=== PATIENT | female | born 1955 ===

== ENCOUNTER 2017-04-02 06:14 | Observation (INO) | payer OTHER ==
[2017-04-02 07:57] LABS: BASO % 0.5 % (0.0-2.0); EOS # 0.1 K/uL (0.0-0.7); HEMATOCRIT 34.1 % (34.0-47.0); LYMPH # 1.6 K/uL (1.0-4.3); LYMPH % 21.9 % (20.0-40.0); MEAN CELL VOLUME 74.8 fl (81.0-99.0); MEAN CORPUSCULAR HEMOGLOBIN 23.8 pg (27.0-31.0); MEAN CORPUSCULAR HGB CONC 31.8 g/dL (33.0-37.0); MEAN PLATELET VOLUME 7.3 fl (7.2-11.7); MONO # 0.7 K/uL (0.0-0.8); MONO % 8.8 % (0.0-10.0); NEUT % 66.8 % (50.0-75.0); RED CELL DISTRIBUTION WIDTH 17.1 % (11.5-14.5); WHITE BLOOD COUNT 7.5 K/uL (4.8-10.8)
--- NOTE | 2017-04-02 08:00 | RAD ---
HISTORY: knee pain COMPARISON: No prior. FINDINGS: LUNGS: No active pulmonary disease. PLEURA: No significant pleural effusion identified, no pneumothorax apparent. CARDIOVASCULAR: Normal. OSSEOUS STRUCTURES: No significant abnormalities. VISUALIZED UPPER ABDOMEN: Normal. OTHER FINDINGS: None. IMPRESSION: No acute cardiopulmonary disease appreciated.
[2017-04-02 08:02] LABS: PARTIAL THROMBOPLASTIN TIME 29.6 Seconds (25.6-37.1)
[2017-04-02 08:10] LABS: BLOOD UREA NITROGEN 17 mg/dl (7-17); CALCIUM 9.8 mg/dL (8.4-10.2); CARBON DIOXIDE 24 mmol/L (22-30); CHLORIDE 106 mmol/L (98-107); GFR AFRICAN-AMERICAN > 60; GLUCOSE,RANDOM 131 mg/dL (65-105); POTASSIUM 3.9 MMOL/L (3.6-5.0); SODIUM 142 mmol/l (132-148)
--- NOTE | 2017-04-02 08:15 | ED PDOC ---
Lower Extremity Pain/Injury Time Seen by Provider: 04/02/17 07:04 Chief Complaint (Nursing): Lower Extremity Problem/Injury Chief Complaint (Provider): Left Knee Pain History Per: Patient History/Exam Limitations: no limitations Onset/Duration Of Symptoms: Other (3 weeks) Current Symptoms Are (Timing): Still Present Additional Complaint(s): Patient is a 61 y/o female with a past medical history of hypertension presenting to the emergency department for severe, worsening left knee pain ongoing for three weeks. States that her knee feels "locked" and reports having difficulty walking and bending her knee. Also notes taking Tylenol with codeine without significant relief. Denies fever, trauma, leg swelling, or other complaints. PCP: Dr. Imani Schultz Past Medical History Reviewed: Historical Data, Nursing Documentation, Vital Signs Vital Signs: Last Vital Signs Temp 98.2 F 04/02/17 06:18 Pulse 73 04/02/17 06:18 Resp 16 04/02/17 06:18 BP 134/57 L 04/02/17 06:18 Pulse Ox 98 04/02/17 06:18 - Medical History PMH: HTN - Surgical History Surgical History: - Family History Family History: States: Unknown Family Hx - Social History Alcohol: None Drugs: Denies - Home Medications Home Medications: Ambulatory Orders Medication Instructions Recorded Bimatoprost [Lumigan] 1 drop OU HS 04/02/17 Dorzolamide HCl/Timolol Maleat 1 drop OU BID 04/02/17 [Dorzolamide-Timolol Eye Drops] Losartan/Hydrochlorothiazide 1 tab PO DAILY 04/02/17 [Losartan-Hctz 50-12.5 mg Tab] oxyCODONE/Acetaminophen [Percocet 1 mg PO Q4 PRN 04/02/17 5/325 mg Tab] - Allergies Allergies/Adverse Reactions: Allergies Allergy/AdvReac Type Severity Reaction Status Date / Time No Known Allergies Allergy Verified 04/02/17 06:21 Review of Systems ROS Statement: Except As Marked, All Systems Reviewed And Found Negative Constitutional: Negative for: Fever Musculoskeletal: Positive for: Other (Left knee pain) Physical Exam - Reviewed Nursing Documentation Reviewed: Yes Vital Signs Reviewed: Yes - Physical Exam Appears: Positive for: Non-toxic, No Acute Distress Head Exam: Positive for: ATRAUMATIC, NORMAL INSPECTION, NORMOCEPHALIC Skin: Positive for: Normal Color, Warm, Dry Eye Exam: Positive for: Normal appearance Neck: Positive for: Normal Cardiovascular/Chest: Positive for: Regular Rate, Rhythm. Negative for: Murmur Respiratory: Positive for: Normal Breath Sounds. Negative for: Accessory Muscle Use, Respiratory Distress Gastrointestinal/Abdominal: Positive for: Normal Exam Extremity: Positive for: Tenderness (to palpation of left knee), Swelling (mild , left knee), Other (extremely limited ROM of left knee due to pain) - Laboratory Results Result Diagrams: 04/02/17 07:24 04/02/17 08:24 - ECG ECG: Positive for: Interpreted By Me, Viewed By Me ECG Rhythm: Positive for: Normal QRS, Sinus Rhythm. Negative for: ST/T Changes Rate: 63 O2 Sat by Pulse Oximetry: 98 (RA) Pulse Ox Interpretation: Normal Medical Decision Making Medical Decision Making: Time: 07:18 Initial impression: Intractable left knee pain. Differential diagnoses include but not limited to arthritis. Initial plan: EKG Orthopedic Consult Labs Urinalysis Reevaluation 07:[address] Boyle who recommends admission to hospital. 07:58 Chest X-ray reviewed. Findings noted as follows: LUNGS: No active pulmonary disease. PLEURA: No significant pleural effusion identified, no pneumothorax apparent. CARDIOVASCULAR: Normal. OSSEOUS STRUCTURES: No significant abnormalities. VISUALIZED UPPER ABDOMEN: Normal. OTHER FINDINGS: None. IMPRESSION: No acute cardiopulmonary disease appreciated. Scribe Attestation: Documented by Opal Huynh, acting as a scribe for Devan Wong MD. Provider Scribe Attestation: All medical record entries made by the Scribe were at my direction and personally dictated by me. I have reviewed the chart and agree that the record accurately reflects my personal performance of the history, physical exam, medical decision making, and the department course for this patient. I have also personally directed, reviewed, and agree with the discharge instructions and disposition. Disposition - Clinical Impression Clinical Impression: Knee pain, acute, Knee pain, left - Patient ED Disposition Is Patient to be Admitted: Yes Discussed With : Mushtaq Boyle III Doctor Will See Patient In The: Hospital Counseled Patient/Family Regarding: Diagnosis - Disposition Disposition Time: 07:30 Condition: FAIR - Pt Status Changed To: Hospital Disposition Of: Observation - POA Present On Arrival: None
[2017-04-02 08:32] LABS: RBC URINE 1 /hpf (0-3); URINE BILIRUBIN NEGATIVE (NEGATIVE); URINE BLOOD NEGATIVE (NEGATIVE); URINE COLOR YELLOW (YELLOW); URINE GLUCOSE (UA) NEG (Normal); URINE KETONE NEGATIVE (NEGATIVE); URINE LEUKOCYTE ESTERASE TRACE Leu/uL (Negative); URINE PROTEIN NEGATIVE (NEGATIVE); URINE UROBILINOGEN 0.2-1.0 mg/dL (0.2-1.0); WBC URINE 3 /hpf (0-5)
--- NOTE | 2017-04-02 08:38 | CP.PCM.HP ---
History of Present Illness - History of Present Illness History of Present Illness: Orthopedic note Dr. Boyle 61F complains of intractable left knee pain and difficulty walking x 3 weeks. She denies any trauma or falls at that time, but says pain started acutely. She is unable to walk without a limp due to pain. OTC pain medication does not help. She has no hx gout, no prior knee pain or injury or surgery. Says pain is throbbing, and worst in the back of her knee PMH: HTN, glaucoma PSH: thyroid, c section NKDA Present on Admission - Present on Admission Any Indicators Present on Admission: No Review of Systems - Review of Systems All systems: reviewed and no additional remarkable complaints except - Constitutional Additional comments: denies, no recent illness or travel - Musculoskeletal Musculoskeletal: As Per HPI - Integumentary Additional comments: mild swelling - Neurological Additional comments: denies numbness/tingling - Endocrine Endocrine: absent: As Per HPI, Change in Body Appearance, Change in Libido, Cold Intolorance, Deepening of Voice, Excessive Sweating, Fatigue, Flushing, Heat Intolorance, Increase in Ring/Shoe/Hat Size, Palpitations, Polydipsia, Polyphagia, Polyuria, Other - Hematologic/Lymphatic Hematologic: absent: As Per HPI, Easy Bleeding, Easy Bruising, Lymphadenopathy, Other Past Patient History - Past Medical History & Family History Past Medical History?: Yes - Past Social History Alcohol: None Drugs: Denies - CARDIAC Hx Hypertension: Yes - HEENT Hx Glaucoma: Yes - PSYCHIATRIC Hx Emotional Abuse: No Hx Physical Abuse: No Hx Substance Use: No - SURGICAL HISTORY Hx Section: Yes Hx Thyroidectomy: Yes (partial) - ANESTHESIA Hx Anesthesia: No Meds Allergies/Adverse Reactions: Allergies Allergy/AdvReac Type Severity Reaction Status Date / Time No Known Allergies Allergy Verified 04/02/17 06:21 Physical Exam - Constitutional Appears: Well, No Acute Distress - Respiratory Exam Respiratory Exam: NORMAL BREATHING PATTERN - Cardiovascular Exam Cardiovascular Exam: REGULAR RHYTHM - GI/Abdominal Exam GI & Abdominal Exam: Normal Bowel Sounds - Expanded Lower Extremities Exam Left Hip exam: full ROM (Left knee: neg varus/valgus/maria r, sensation intact, calves soft NT neg homans, +mild jt effusion, not warm no erythema, TTP posterior knee and medial joint line) Ankle exam: FULL ROM, NORMAL INSPECTION Foot/Toe exam: full ROM - Neurological Exam Neurological exam: Alert, Oriented x3 - Psychiatric Exam Psychiatric exam: Normal Affect, Normal Mood - Skin Skin Exam: Dry, Intact, Normal Color, Warm Results - Vital Signs Recent Vital Signs: Last Vital Signs Temp 98.2 F 04/02/17 06:18 Pulse 73 04/02/17 06:18 Resp 16 04/02/17 06:18 BP 134/57 L 04/02/17 06:18 Pulse Ox 98 04/02/17 08:20 - Labs Result Diagrams: 04/02/17 07:24 Labs: Laboratory Results - last 24 hr 04/02/17 04/02/17 04/02/17 07:24 07:24 07:49 WBC 7.5 RBC 4.55 Hgb 10.8 L Hct 34.1 MCV 74.8 L MCH 23.8 L MCHC 31.8 L RDW 17.1 H Plt Count 379 MPV 7.3 Neut % (Auto) 66.8 Lymph % (Auto) 21.9 [place] % (Auto) 8.8 Eos % (Auto) 2.0 Baso % (Auto) 0.5 Neut # 5.0 Lymph # 1.6 [place] # 0.7 Eos # 0.1 Baso # 0.0 PT 11.5 INR 1.0 APTT 29.6 POC Glucose (mg/dL) Urine Color Yellow Urine Clarity Slighty-cloudy Urine pH 6.0 Ur Specific [place] 1.018 Urine Protein Negative Urine Glucose (UA) Neg Urine Ketones Negative Urine Blood Negative Urine Nitrate Negative Urine Bilirubin Negative Urine Urobilinogen 0.2-1.0 Ur Leukocyte Esterase Trace Urine RBC (Auto) 1 Urine Microscopic WBC 3 Ur Squamous Epith Cells 5 04/02/17 07:57 WBC RBC Hgb Hct MCV MCH MCHC RDW Plt Count MPV Neut % (Auto) Lymph % (Auto) [place] % (Auto) Eos % (Auto) Baso % (Auto) Neut # Lymph # [place] # Eos # Baso # PT INR APTT POC Glucose (mg/dL) 131 H Urine Color Urine Clarity Urine pH Ur Specific [place] Urine Protein Urine Glucose (UA) Urine Ketones Urine Blood Urine Nitrate Urine Bilirubin Urine Urobilinogen Ur Leukocyte Esterase Urine RBC (Auto) Urine Microscopic WBC Ur Squamous Epith Cells - Impressions Impression: MRI from outside facility: [facility] rad 03/17/17 Cartilage loss over PF jt, noted joint effusion and soft tisuue edema Degeneration of posterior horn of the meidal meniscus, 5mm traction cyst at the tibial root insertion joint effusion Assessment & Plan (1) Knee pain, left Status: Acute (2) Acute medial meniscus tear of left knee Assessment and Plan: case d/w Dr. Boyle who reviewed MRI NPO for left knee arthroscopy today labs reviewed for OR Status: Acute
[2017-04-02] MEDS ORDERED: ceFAZolin IV 1 gm in Dextrose 1 GM/50 ML BAG IVPB ONE (09:00)
[2017-04-02] MEDS ORDERED: Bupivacaine 0.5% Inj(30mL) ONE (09:00)
[2017-04-02] MEDS ORDERED: MethylPREDNISolone Depo 40 mg/ml Inj ONE (09:00)
[2017-04-02] MEDS ORDERED: Lidocaine 1% Inj (20ml) ONE (09:00)
[2017-04-02] MEDS ORDERED: Absorbable Gelatin Sponge Size 12-7 ONE (09:00)
[2017-04-02] MEDS ORDERED: Propofol 10 mg/ml Inj (20 ML) ONE (09:16)
[2017-04-02] MEDS ORDERED: Succinylcholine 200 mg/10 ml Inj IV ONE (09:17)
[2017-04-02] MEDS ORDERED: Bacitracin Ointment 30 GM TUBE ONE (09:32)
[2017-04-02] MEDS ORDERED: Lidocaine 4% (Laryng-O-Jet) Kit MM ONE (11:48)
[2017-04-02] MEDS ORDERED: Midazolam 2 MG/2 ML VIAL ONE (11:48)
[2017-04-02] MEDS ORDERED: Lactated Ringer's 1,000 ML IV ONE ×3 (11:50→15:00)
[2017-04-02] MEDS ORDERED: ePHEDrine 50 mg/ml Inj ONE (12:15)
[2017-04-02] MEDS ORDERED: Sevoflurane - Inhalation Anesthetic Liq (250 ml) ONE (12:20)
[2017-04-02] MEDS ORDERED: Rocuronium 10 mg/ml (5 ml) ONE (12:30)
[2017-04-02] MEDS ORDERED: Oxycodone/Acetaminophen 5/325 mg Tab PO PRN (12:55)
[2017-04-02] MEDS ORDERED: Lidocaine 1% Inj (20ml) IJ ONE (12:55)
[2017-04-02] MEDS ORDERED: Morphine 1 mg/ml preservative-free Inj(Duramorph) ONE (13:15)
[2017-04-02] MEDS ORDERED: Neostigmine Methylsulfate 2 MG/2 ML ML IV ONE (13:25)
[2017-04-02] MEDS ORDERED: Bupivacaine 0.5% 50 ML IJ ONE (13:25)
[2017-04-02] MEDS ORDERED: Morphine 5 mg/10 ml preservative-free Inj(Duramorph) INJ ONE (13:25)
[2017-04-02] MEDS ORDERED: Bacitracin OINT 15GM TOP ONE (13:25)
[2017-04-02] MEDS ORDERED: MethylPREDNISolone Depo 40 mg/ml Inj INJ ONE (13:25)
[2017-04-02] MEDS ORDERED: HYDROmorphone 0.5 mg/0.5 ml ISec IVP PRN (13:50)
--- NOTE | 2017-04-02 13:54 | PCM.SURG1 ---
Surgeon's Initial Post Op Note - Surgeon's Notes Surgeon: Tamar Motor Block Mechanic: AYAH Sheikh Type of Anesthesia: General Endo Anesthesia Administered By: DR Almanza Pre-Operative Diagnosis: Locked L Knee/O/A L knee Operative Findings: severe djd medial femoral condyle/posterior patella. tear medial meniscus/teasrt lateral meniscus. tricompartmental synovitis Post-Operative Diagnosis: as above Operation Performed: athroscopic microfracture medial femoral comndyler. chondroplasty posterior patella. tricompartmental synovitis. tear medial menioscus/tear lateral meniscus Specimen/Specimens Removed: cartilage/bone/synovium Estimated Blood Loss: EBL {In ML}: 5 Blood Products Given: N/A Drains Used: No Drains Post-Op Condition: Good Date of Surgery/Procedure: 04/02/17 Time of Surgery/Procedure: 12:55 (time in room/ anesthesiua iundcution [id number] )
[2017-04-02 14:07] VITALS: RESP 18
[2017-04-02 14:10] LABS: FLUID TYPE SYNOVIAL FLUID
[2017-04-02 16:07] LABS: SYNOVIAL FLUID TOTAL COUNT 100 (0-0)
[2017-04-02] MEDS ORDERED: Oxycodone/Acetaminophen 5/325 mg Tab PO ONE (16:25)
--- NOTE | 2017-04-02 16:31 | CARD ---
APPROVED REPORT EKG Measurement Heart [id number] <Conclusion> Normal sinus rhythm Normal ECG
[2017-04-02 17:50] VITALS: BP 124/62; TEMP 98
--- NOTE | 2017-04-02 18:41 | OP ---
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 POSTOPERATIVE DIAGNOSES: 1. Locked left knee. 2. Condylar damage, medial femoral condyle, patellofemoral joint. 3. Tear of medial and lateral meniscus. 4. Tricompartmental synovitis. PROCEDURE: 1. Surgical arthroscopy, microfracture, medial femoral condyle. 2. Surgical arthroscopy, chondroplasty, posterior aspect of the patella. 3. Surgical arthroscopy, partial medial meniscectomy, partial lateral meniscectomy. 4. Surgical arthroscopy, partial tricompartmental synovectomy. 5. Intraarticular injection. SURGEON: Mushtaq Boyle MD OPERATIONS ADMINISTRATIVE ASSISTANT: Nerissa Montez, certified registered nursing. TYPE OF ANESTHESIA: General and spinal anesthesia. ANESTHESIA ADMINISTERED BY: Juan Carlos Cifuentes MD COMPLICATIONS: None. DRAINS: None. OPERATIVE INDICATIONS: Mrs. Franklin is a woman who presents to the emergency room of [facility] with severe pain and inability to ambulate with a locked left knee. The patient no longer withstand the discomfort. She was admitted as an emergency with left knee locking and severe pain. She has had severe pain since Sunday. The patient presented as a 61-year-old woman with severe pain and a locked knee, who presents to the emergency room of [facility] with severe pain and locked left knee. The patient have been treated conservatively by her primary care doctor. The patient was admitted as an emergency for an emergency surgery. DESCRIPTION OF PROCEDURE: After having obtained informed consent in the above fashion, after having identified side, site, and procedure, a critical pause/timeout after the satisfactory induction of general anesthetic. The patient identified as Vanessa Franklin. In the supine position, with all bony prominence well padded, the left lower extremity was prepped and free-draped in the usual fashion for lower extremity surgery. The tourniquet had been applied, but not yet inflated. A needle hickman was employed after exsanguinating the limb using 6-inch Esmarch bandage. The tourniquet which had been applied was inflated to 350 mmHg. was shaved to lateral aspect of the patella using #11 blade followed by spreading. The arthroscope was introduced. The joint was infiltrated with 10 mL of 1% lidocaine without epinephrine. Using #11 blade followed by spreading, the arthroscope was introduced. There was found to be exuberant tricompartmental synovitis speaking for inflammation. The anterior cruciate ligament was immediately evidenced as being impacted. There was evidence of severe chondral damage in the area of the medial femoral condyle. Triangulation was accomplished using #18-gauge spinal needle, followed by #11 blade, followed by spreading followed by introduction of blunt trocar. With the arthroscope anterolaterally, using an arthroscopic shaver, a careful partial tricompartmental synovectomy is accomplished. With improved visualization into plain irritative tissue, the arthroscope was placed anteromedially. With the surgeon exerting a general valgus stress, the medial compartment was exposed to advantage, there was found to be evidence of marked condylar damage in the medial femoral condyle. Using a combination of the arthroscopic shaver, loose fragments were debrided from the medial femoral condyle. This through the articular cartilage all the way to the subcondylar base plate. With the arthroscope anteromedially, careful partial tricompartmental synovectomy is completed. With the arthroscope anteromedially, debrided the medial compartment. A partial medial meniscectomy was accomplished. With the arthroscope anteromedially, using a combination of the straight biting basket forceps and the upbiting basket forceps, a partial medial meniscectomy was accomplished. The arthroscope was placed anterolaterally and the arthroscopic shaver was placed anteromedially, the medial free edge was smoothed using ArthroCare wand. With the arthroscope anterolaterally with the knee in [id number] position, there was found to be a tear of the inner free edge of the lateral meniscus. Using straight biting basket forceps, a partial lateral meniscectomy was accomplished. The arthroscope was placed anteromedially, using the arthroscopic shaver, the inner free edge was smoothed using an ArthroCare wand. Chondroplasty of the patella was accomplished. There was found to be evidence of arthritic change chondroplasty was accomplished. Chondroplasty of the medial femoral condyle was accomplished with the arthroscopic pick down through subchondral bone. The arthroscopic pick is used down through subchondral bone and this having been accomplished; using arthroscopic shaver, the loose fragments were removed in a honey comb fashion of the microfracture in the medial femoral condyle was noted. The inner free edge was smoothed using ArthroCare wand. Having performed partial medial meniscectomy and partial lateral meniscectomy having performed chondroplasty of the posterior aspect of the patella with the arthroscopic shaver. Having accomplished a microfracture in the medial femoral condyle, and a partial tricompartmental synovectomy, the wound was thoroughly irrigated, hemostasis controlled. Closure was in layers with interrupted Vicryl and nylon. Intraarticular injection was offered. [place] compression dressing was done. The Marcaine and Depo-Medrol were introduced into the joint. [place] compression dressing was applied. There was no evidence of posterior cyst. There was no evidence clinically of the cyst. The patient was notified prior to the informed consent process that if the patient continue she would require a replacement arthroplasty in the future. The patient fully understands and an informed consent was obtained from the patient in the presence of her daughter, Mushtaq Boyle MD
[2017-04-03 19:34] VITALS: PULSE 63; O2SAT 98
== END 2017-04-02 18:20 | disposition home or self-care (01) ==
LOC: H.ER 06:14 → H.ERHOLD 07:19
PROVIDERS: ADMIT Orthopaedic Surgery; ATTEND Orthopaedic Surgery
DX: M23.301 Other meniscus derangements, unspecified lateral meniscus, left knee (principal); M23.304 Other meniscus derangements, unspecified medial meniscus, left knee; M65.862 Other synovitis and tenosynovitis, left lower leg; M17.12 Unilateral primary osteoarthritis, left knee; I10 Essential (primary) hypertension; H40.9 Unspecified glaucoma; M25.562 Pain in left knee
CPT/HCPCS: 29876; 29880; 71010; 80048; 81003; 82948; 85025; 85610; 85730; 87015; 87070; 87075; 87101; 87116; 87206; 88304; 88305; 89051; 93005; 97161; 99284; G0378; J0171; J0330; J0690; J1030; J2001; J2250; J2270; J2704; J2710; J2765; J3010; J7030; J7120